=== PATIENT | female | born 1955 | race Caucasian/White ===

== ENCOUNTER 2022-05-04 14:01 | Emergency (ER) | payer BC, OTHER ==
[~2022-05-04] VITALS: Ht 160 cm; Wt 49.0 kg
[2022-05-04 15:35] VITALS: BP_SYST 153
--- NOTE | 2022-05-04 15:40 | NUR ---
Pt brought by self, A&Ox4, pt presents to ER with R lower abdominal pain x 1 month, skin pink and warm, cap refill <3, VSS, no N/V noted, will cont to monitor.
--- NOTE | 2022-05-04 18:20 | NUR ---
Pt ambulatory, A&Ox4, VSS
[2022-05-04 19:01] LABS: LYMPHOCYTES # (AUTO) 0.8 K/uL (1.0-5.5); MONOCYTES # (AUTO) 0.4 K/uL (0.0-1.0); WHITE BLOOD COUNT (AUTO) 3.5 K/uL (4.8-10.8)
[2022-05-04 19:45] LABS: BASOPHILS % (AUTO) 0.4 % (0.0-2.0); EOSINOPHILS % (AUTO) 0.1 % (0.0-4.0); HEMATOCRIT 37.3 % (36-48); LYMPHOCYTES % (AUTO) 23.9 % (20.5-51.5); MEAN CORPUSCULAR VOLUME 97 fL (79.0-98.0); MONOCYTES % (AUTO) 10.3 % (1.7-9.3); NEUTROPHILS # (AUTO) 2.3 K/uL (1.8-7.7); NEUTROPHILS % (AUTO) 65.3 % (40.0-70.0); PLATELET COUNT (AUTO) 209 K/uL (130-430); RED BLOOD CELL COUNT(AUTO) 3.85 MIL/uL (4.2-6.2); RED CELL DISTRIBUTION WIDTH 13.5 % (9.0-15.0)
--- NOTE | 2022-05-04 21:00 | NUR ---
Patient to ER bed H1 to gown for evaluation. Side rails up.
[2022-05-04 21:14] LABS: BILIRUBIN,URINE NEGATIVE (NEGATIVE); BLOOD, URINE 2+ (NEGATIVE); CLARITY/URINE CLEAR (CLEAR); COLOR,URINE YELLOW (YELLOW); GLUCOSE,URINE NEGATIVE (NEGATIVE); KETONES,URINE NEGATIVE (NEGATIVE); LEUKOCYTE ESTERASE ,URINE NEGATIVE (NEGATIVE); NITRITE, URINE NEGATIVE (NEGATIVE); PROTEIN URINE NEGATIVE (NEGATIVE); UROBILINOGEN,URINE 0.2 (0.2-1.0)
[2022-05-04] MEDS ORDERED: KETOROLAC TROMETHAMINE 30 MG VIAL IM ONE (21:15)
[2022-05-04] MEDS ORDERED: ONDANSETRON 4 MG ODT TAB PO ONE (21:15)
[2022-05-04 21:20] LABS: CALCIUM 8.9 mg/dL (8.4-11.0); CREATININE 0.75 mg/dL (0.55-1.30)
--- NOTE | 2022-05-04 21:30 | NUR ---
Dr Dumont evaluating patient at bedside
[2022-05-04 21:31] LABS: ALBUMIN 3.9 g/dL (3.4-4.8); TOTAL BILIRUBIN 0.4 mg/dL (0.0-1.0)
[2022-05-04 21:34] LABS: BACTERIA,URINE None Seen /HPF (None Seen); WBC,URINE NONE SEEN /HPF (0-3)
[2022-05-04 21:35] LABS: MUCUS,URINE None Seen /LPF (None Seen)
[2022-05-04] MEDS ORDERED: POTA-197 PO (21:53)
--- NOTE | 2022-05-04 22:17 | NUR ---
Patient given written and verbal discharge instructions and verbalizes understanding. ER MD discussed with patient the results and treatment provided. Patient in stable condition. ID arm band removed. Rx of Hypokalemia, abdominal pain and Constipation given. Patient educated on pain management and to follow up with PMD. Pain Scale 2/10 . Opportunity for questions provided and answered. Medication side effect fact sheet provided.
[2022-05-04 22:18] VITALS: BP_SYST 153
== END 2022-05-04 22:17 | disposition home or self-care (01) ==
LOC: SED 14:01
DX: K59.00 Constipation, unspecified (principal); R10.31 Right lower quadrant pain; D72.819 Decreased white blood cell count, unspecified; E87.6 Hypokalemia; Z79.899 Other long term (current) drug therapy
CPT/HCPCS: 99284; 74176; 80053; 81000; 83690; 85025; 36415; 76376; 96372; Q0162; J1885